=== PATIENT | female | born 1995 | race Caucasian/White ===

== ENCOUNTER 2017-04-16 20:14 | Emergency (ER) | payer BC ==
[2017-04-16 21:31] LABS: Hematocrit 42 % (35-47); Hemoglobin 13.9 g/dl (12.0-16.0); Mean Corpuscular HGB Conc 33 g/dl (31-36); Mean Corpuscular Hemoglobin 30 pg (27-31); Mean Corpuscular Volume 89 fL (80-97); Mean Platelet Volume 8 um3 (7.4-10.4); Red Blood Count 4.69 10^6/ul (4.0-5.4); Red Cell Distribution Width 13 % (10.5-15); White Blood Count 16.4 10^3/ul (3.5-10.8)
[2017-04-16] MEDS ORDERED: NS 0.9% 1000 ML* 1,000 ML IV ONE (21:37)
[2017-04-16] MEDS ORDERED: Ondansetron INJ* 2 MG/ML VIAL IV ONE (21:37)
[2017-04-16 21:48] LABS: ALT 9 U/L (7-52); Albumin 4.4 g/dL (3.2-5.2); Alkaline Phosphatase 46 U/L (34-104); BUN/Creatinine Ratio 22.1 (8-20); Blood Urea Nitrogen 15 mg/dL (6-24); C Reactive Protein 1.94 mg/L (< 5.00); CO2 Carbon Dioxide 21 mmol/L (22-32); Calcium 9.1 mg/dL (8.6-10.3); Chloride 104 mmol/L (101-111); EGFR African American 137.9 (>60); EGFR Non-African American 107.2 (>60); Globulin 3.1 g/dL (2-4); Glucose 121 mg/dL (70-100); Lipase 16 U/L (11.0-82.0); Sodium 133 mmol/L (133-145); Total Protein 7.5 g/dL (6.4-8.9)
[2017-04-16] MEDS ORDERED: Iohexol 300* (CONTRAST) 10 ML SDV IV ONE (22:16)
--- NOTE | 2017-04-16 22:16 | ED ---
Abdominal Pain/Female - HPI Summary HPI Summary: Patient presents to the ED from [facility] with CC of N/V since 3 hours ago, feeling ill all day, sweats, chills and fever since this morning and RLQ and suprapubic pain. She states she has been dehydrated and has not eaten or drank anything since this afternoon. Denies diarrhea or constipation. Denies SOB or chest pain. Denies chance of or STD's. Partner at bedside. Denies any abnormal discharge. No significant PMHx. Worse with movement and better with rest. - History of Current Complaint Chief Complaint: EDAbdPain Stated Complaint: RT SIDED ABD PAIN Time Seen by Provider: 04/16/17 21:09 Hx Obtained From: Patient ?: No Onset/Duration: Sudden Onset Timing: Constant Severity Initially: Mild Severity Currently: Mild Pain Intensity: 7 Pain Scale Used: 0-10 Numeric Location: Discrete At: RLQ Radiates: Yes Character: Sharp Aggravating Factor(s): Nothing Alleviating Factor(s): Nothing Associated Signs and Symptoms: Positive: Diaphoresis, Nausea, Vomiting Allergies/Adverse Reactions: Allergies Allergy/AdvReac Type Severity Reaction Status Date / Time No Known Allergies Allergy Verified 04/16/17 21:39 PMH/Surg Hx/FS Hx/Imm Hx Previously Healthy: Yes Endocrine/Hematology History: Denies: Hx Diabetes Cardiovascular History: Denies: Hx Hypertension History: Denies: Hx Renal Disease - Immunization History Hx Pertussis Vaccination: No Immunizations Up to Date: Unable to Obtain/Confirm Infectious Disease History: No Infectious Disease History: Denies: Traveled Outside the [place] in Last 30 Days - Social History Occupation: Unemployed Lives: With Family Alcohol Use: None Hx Substance Use: No Substance Use Type: Reports: None Hx Tobacco Use: No Smoking Status (MU): Never Smoked Tobacco Review of Systems Positive: Fever, Chills, Fatigue, Skin Diaphoresis Eyes: Negative Cardiovascular: Negative Positive: Abdominal Pain, Vomiting, Nausea Genitourinary: Negative Positive: no symptoms reported, see HPI Musculoskeletal: Negative Neurological: Negative All Other Systems Reviewed And Are Negative: Yes Physical Exam Triage Information Reviewed: Yes Vital Signs On Initial Exam: Initial Vitals Temp Pulse Resp BP Pulse Ox 97.6 F 98 18 117/75 97 04/16/17 20:30 04/16/17 20:30 04/16/17 20:30 04/16/17 20:30 04/16/17 20:30 Vital Signs Reviewed: Yes Appearance: Positive: Well-Appearing, Well-Nourished Skin: Positive: Warm, Skin Color Reflects Adequate Perfusion Head/Face: Positive: Normal Head/Face Inspection Eyes: Positive: EOMI, LUIS A, Conjunctiva Clear Neck: Positive: Supple, Nontender, No Lymphadenopathy Respiratory/Lung Sounds: Positive: Clear to Auscultation, Breath Sounds Present Cardiovascular: Positive: RRR, Pulses are Symmetrical in both Upper and Lower Extremities Abdomen Description: Positive: Guarding, McBurney's Point Tenderness Musculoskeletal: Positive: Normal, Strength/ROM Intact Neurological: Positive: Speech Normal Psychiatric: Positive: Normal - [place] Coma Scale Best Eye Response: 4 - Spontaneous Best Motor Response: 6 - Obeys Commands Best Verbal Response: 5 - Oriented Coma Scale Total: 15 Diagnostics - Vital Signs Vital Signs Temp Pulse Resp BP Pulse Ox 04/16/17 20:30 97.6 F 98 18 117/75 97 - Laboratory Lab Results: Lab Results 04/16/17 04/16/17 04/16/17 Range/Units 21:16 21:16 21:16 WBC 16.4 H (3.5-10.8) 10^3/ul RBC 4.69 (4.0-5.4) 10^6/ul Hgb 13.9 (12.0-16.0) g/dl Hct 42 (35-47) % MCV 89 (80-97) fL MCH 30 (27-31) pg MCHC 33 (31-36) g/dl RDW 13 (10.5-15) % Plt Count 235 (150-450) 10^3/ul MPV 8 (7.4-10.4) um3 Neut % (Auto) 91.9 H (38-83) % Lymph % (Auto) 3.8 L (25-47) % [place] % (Auto) 3.9 (1-9) % Eos % (Auto) 0.3 (0-6) % Baso % (Auto) 0.1 (0-2) % Absolute Neuts (auto) 15.1 H (1.5-7.7) 10^3/ul Absolute Lymphs (auto) 0.6 L (1.0-4.8) 10^3/ul Absolute Monos (auto) 0.6 (0-0.8) 10^3/ul Absolute Eos (auto) 0 (0-0.6) 10^3/ul Absolute Basos (auto) 0 (0-0.2) 10^3/ul Absolute Nucleated RBC 0 10^3/ul Nucleated RBC % 0 Sodium 133 (133-145) mmol/L Potassium Pending Chloride 104 (101-111) mmol/L Carbon Dioxide 21 L (22-32) mmol/L Anion Gap Pending BUN 15 (6-24) mg/dL Creatinine 0.68 (0.51-0.95) mg/dL Est GFR ( Amer) 137.9 (>60) Est GFR (Non-Af Amer) 107.2 (>60) BUN/Creatinine Ratio 22.1 H (8-20) Glucose 121 H (70-100) mg/dL Lactic Acid 1.1 (0.5-2.0) mmol/L Calcium 9.1 (8.6-10.3) mg/dL Total Bilirubin 0.80 (0.2-1.0) mg/dL AST Pending ALT 9 (7-52) U/L Alkaline Phosphatase 46 (34-104) U/L C-Reactive Protein 1.94 (< 5.00) mg/L Total Protein 7.5 (6.4-8.9) g/dL Albumin 4.4 (3.2-5.2) g/dL Globulin 3.1 (2-4) g/dL Albumin/Globulin Ratio 1.4 (1-3) Lipase 16 (11.0-82.0) U/L Beta HCG, Quant < 0.60 mIU/mL Result Diagrams: 04/16/17 21:16 04/16/17 22:28 Lab Statement: Any lab studies that have been ordered have been reviewed, and results considered in the medical decision making process. Abdominal Pain Fem Course/Dx - Course Course Of Treatment: Patient evaluated for RLQ pain, N/V and fever. Afebrile on arrival. During the course of treatment, she is given fluids and zofran with relief. CT abd/pelvis obtained and negative for any acute findings. No appendicititis. On PE, obturator positive but patient continues to complain of diffuse lower quadrant abdominal pain and worse on palpation. The pain is located more suprapubically then RLQ on second physical exam. Treatment options explained to patient. Patient denies any chance of STD's, but provider obtained GC/chlaymdia urine and will call with any positive results. She is encoaurged to follow up with PCP or OBGYN if symptoms persist and return to the ED if symptoms worsen. I have explained to patient this is likely a viral gastroenteritis with acute nausea and vomiting, however without performing a pelvic exam, unable to assess for PID or other pelvic pathology. HCG negative. Patient understands the plan, voices no concerns at this time and understands the return precatuions given to them if any symptoms become worse. They are OK for discharge at this time. VS stable on discharge. She is given pain medications, nausea medications to go and prescriptions sent. Rest for 2 days and note given for work. Afebrile. Eating and drinking OK on discharge. Denies vaginal bleeding or abnormal discharge. UA negative. Negative lowe's sign. - Diagnoses Differential Diagnosis: Positive: Appendicitis, Ectopic , Urinary Tract Infection Provider Diagnoses: Abdominal pain, Nausea & vomiting Discharge - Discharge Plan Condition: Stable Disposition: HOME Prescriptions: HYDROcodone/ACETAMIN 5-325 MG* [[place] 5-325 TAB*] 1 tab PO Q4H PRN #12 tab MDD 6 PRN Reason: Pain Ondansetron ODT TAB* [Zofran 4 MG Odt TAB*] 4 mg PO Q6H PRN #12 tab.odt MDD 4 PRN Reason: Nausea Patient Education Materials: Acute Nausea and Vomiting (ED), Acute Abdominal Pain (ED) Forms: *School Release Referrals: [facility] - [facility] [Primary Care Provider] - Additional Instructions: Dx. Nausea If you are having episodes of vomiting, you may become dehydrated. Drink plenty of fluids. If you feel you cannot keep enough fluids down, you may supplement with drinks like Gatorade or V8 juice. This will help balance your electrolytes which are lost during dehydration. Take any medication prescribed to you as directed. Zofran: Do not drive or do anything else that could be dangerous until you know how this medicine affects you. Hydrocodone: This is a pain medication and should be taken only if Tylenol 650mg is not improving your symptoms. Take up to every 4 hours as needed for pain. Slowly introduce foods into your diet that you can tolerate. Examples of low reactive foods are crackers, soup, rice, and breads. See below. If you have any questions regarding your medications, you may call the office or your pharmacist. If your symptoms fail to improve or worsen, please call your primary care provider or seek other medical attention. Drink small amounts of fluid as tolerated When able to eat follow BRAT diet: Bananas, rice, applesauce, toast Symptoms likely due to viral gastroenteritis Follow up with primary within 5 days Return to ED if develop fever that does not respond to Tylenol or ibuprofen, severe abdominal pain, or any new or worsening symptoms
[2017-04-16 22:17] LABS: Anion Gap 8 mmol/L (2-11)
[2017-04-16 23:32] LABS: Urine Bacteria Absent (Absent); Urine Bilirubin Negative (Negative); Urine Glucose Negative (Negative); Urine Nitrite Negative (Negative)
[2017-04-17] MEDS ORDERED: Ondansetron ODT TAB* 4 MG SL ONE (00:38)
[2017-04-17] MEDS ORDERED: HYDROcodone/ACETAMIN 5-325 MG* 1 TAB PO ONE (00:39)
[2017-04-17 01:00] VITALS: BP 104/50
--- NOTE | 2017-04-17 08:04 | RAD ---
CLINICAL HISTORY: Right lower quadrant pain COMPARISON: None TECHNIQUE: Contrast enhanced CT examination of the abdomen and pelvis from the lung bases through the initial tuberosities. The patient received 69 mL Omnipaque 300 intravenously prior to imaging.The patient received oral contrast as well prior to imaging. FINDINGS: VISUALIZED LUNG BASES: Along the lateral margin of the right lower lobe there is a subpleural nodule measuring 5 mm in greatest projection (image 6). Otherwise the visualized lung bases are grossly clear. There is no pleural effusion. ABDOMEN AND PELVIS: The liver, spleen, pancreas and adrenal glands are grossly normal in appearance. The gallbladder is normal. At the mid-level right kidney there is a subcentimeter focus with a Hounsfield unit consistent with a simple cyst. At the lower pole left renal cortex there is a somewhat irregular hypodense focus measuring 1.8 x 1.4 cm in the axial plane and 1.3 cm in the cephalocaudal projection (axial image 27 and coronal image 55). Otherwise the kidneys appear normal without signs of hydronephrosis. There is right greater than left excretion of contrast seen on which should be portal venous phase imaging. On the delayed phase imaging there is fairly symmetrical excretion of contrast. The oral contrast has progressed only as far as the proximal small bowel. There are prominent loops of fluid-filled small bowel throughout the abdomen measuring up to 2.6 cm in diameter at the low midline abdomen (coronal image 50). There is no definite bowel wall thickening. The diminutive partially gas-filled appendix is identified in the right lower quadrant (coronal image 37). There is no gross retroperitoneal or mesenteric lymphadenopathy. The patient's intrauterine device is appropriate position. The abdominal aorta and iliac arteries are normal in course and diameter. There are no sinister bone lesions. IMPRESSION: 1. Top normal fluid-filled loops of small bowel without pathologic dilatation by size criteria or definite wall thickening. Please correlate to signs and symptoms of enteritis. 2. There is a somewhat irregular hypoattenuating focus in the lower pole the left kidney with a Hounsfield unit greater than that of a simple cyst. Recommend imaging of the kidneys with ultrasound for further characterization. 3. Along the lateral margin of the right lower lobe is a subpleural nodule measuring 5 mm in greatest dimension of doubtful clinical significance. Findings were reported to Cyndy Gaytan RN over the telephone at 800 hours on April 17, 2017
== END 2017-04-17 01:06 | disposition home or self-care (01) ==
LOC: ED 20:14
DX: R10.31 Right lower quadrant pain (principal); R11.2 Nausea with vomiting, unspecified
CPT/HCPCS: 36415; 74177; 80053; 81003; 81015; 83605; 83690; 84702; 85025; 86140; 96360; 99282; A9270-GY; J2405; Q9967

== ENCOUNTER → 2017-04-17 09:28 | Emergency (ER) | payer BC ==
[2017-04-17 09:35] VITALS: BP 95/60
== END | disposition home or self-care (01) ==
LOC: ED 09:28
DX: R11.10 Vomiting, unspecified (principal); Z53.21 Procedure and treatment not carried out due to patient leaving prior to being seen by health care provider

== ENCOUNTER 2018-03-19 08:16 | Emergency (ER) | payer BC ==
[2018-03-19 08:24] VITALS: BP 90/70
--- NOTE | 2018-03-19 09:01 | UC ---
Complaint Female HPI - HPI Summary HPI Summary: 22-year-old woman comes in with a chief complaint of vaginal discharge. Been going on for 2 days. It's itchy and clear DISCHARGE. No fevers or chills no abdominal pain. Patient has an IUD. Patient is not concerned about an STI. No dysuria or concern of urinary tract infection. She has not noticed any perineal rashes. - History Of Current Complaint Chief Complaint: UCGU Stated Complaint: UTI Time Seen by Provider: 03/19/18 08:47 Hx Last Menstrual Period: 03/11/18 Pain Intensity: 1 - Allergies/Home Medications Allergies/Adverse Reactions: Allergies Allergy/AdvReac Type Severity Reaction Status Date / Time No Known Allergies Allergy Verified 03/19/18 08:25 PMH/Surg Hx/FS Hx/Imm Hx Previously Healthy: Yes - Surgical History Surgical History: None - Family History Known Family History: Negative: Diabetes - Social History Alcohol Use: Rare Substance Use Type: None Smoking Status (MU): Never Smoked Tobacco Review of Systems Constitutional: Negative Skin: Negative Eyes: Negative ENT: Negative Respiratory: Negative Cardiovascular: Negative Gastrointestinal: Negative Genitourinary: Vaginal/Penile Itching, Vaginal/Penile Discharge Motor: Negative Neurovascular: Negative Musculoskeletal: Negative Neurological: Negative Psychological: Negative Is Patient Immunocompromised?: No All Other Systems Reviewed And Are Negative: Yes Physical Exam Triage Information Reviewed: Yes Appearance: Well-Appearing, No Pain Distress, Well-Nourished Vital Signs: Initial Vital Signs Temp 97.8 F 03/19/18 08:21 Pulse 88 03/19/18 08:21 Resp 20 03/19/18 08:21 BP 90/70 03/19/18 08:21 Pulse Ox 99 03/19/18 08:21 Vital Signs Reviewed: Yes Eye Exam: Normal Eyes: Positive: Conjunctiva Clear Neck exam: Normal Neck: Positive: Supple Respiratory Exam: Normal Respiratory: Positive: Lungs clear, Normal breath sounds, No respiratory distress Cardiovascular Exam: Normal Cardiovascular: Positive: RRR Abdomen Description: Positive: Nontender, Soft Bowel Sounds: Positive: Present Pelvic Exam: Positive: No Masses, Other - Is minimal clear discharge no lesions exam nontender. IUD strings in place.. Negative: Blood Musculoskeletal Exam: Normal Musculoskeletal: Positive: Strength Intact, ROM Intact Neurological Exam: Normal Neurological: Positive: Alert, Muscle Tone Normal Psychological Exam: Normal Psychological: Positive: Age Appropriate Behavior Skin Exam: Normal Complaint Female Dx - Course Course Of Treatment: History and symptoms most consistent with bacterial vaginitis. We'll treat with metronidazole gel. chlamydia and affirm results are pending. - Differential Dx/Diagnosis Provider Diagnoses: VAGINITIS Discharge - Sign-Out/Discharge Documenting (check all that apply): Patient Departure All imaging exams completed and their final reports reviewed: No Studies - Discharge Plan Condition: Stable Disposition: HOME Prescriptions: metroNIDAZOLE [Metrogel] 1 applic VAGINAL DAILY #55 gm Patient Education Materials: Vaginitis (ED) Referrals: [facility] - [facility] [Primary Care Provider] - Additional Instructions: FOLLOW UP WITH YOUR DOCTOR IF NOT COMPLETELY IMPROVED. GET RECHECKED FOR ANY WORSENING OF YOUR CONDITION OR QUESTIONS OR CONCERNS. - Billing Disposition and Condition Condition: STABLE Disposition: Home
== END 2018-03-19 09:45 | disposition home or self-care (01) ==
LOC: UCEAST 08:16
DX: N76.0 Acute vaginitis (principal)
CPT/HCPCS: 81003; 87086; 87480; 87491; 87510; 87591; 87661; 99212; G0463